=== PATIENT | female | born 2000 | race Two or more races ===

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

== ENCOUNTER 2019-10-01 01:56 | Outpatient (CLI) | payer OTHER | END 2019-10-01 11:36 | disposition home or self-care (01) | LOC: OBS/DEL 01:56 | DX: O60.03 Preterm labor without delivery, third trimester (principal) ==

== ENCOUNTER 2025-09-14 11:02 | Emergency (ER) | payer OTHER ==
[~2025-09-14] VITALS: Ht 152.4 cm; Wt 81.6 kg
[2025-09-14] MEDS ORDERED: 0.9 % SODIUM CHLORIDE 1 ML IV ONE (11:45)
[2025-09-14 11:54] LABS: BASO % 0.4 % (0.1-1.2); EOS # 0.23 (0.04-0.54); EOS % 2.3 % (0.7-7.0); LYMPH # 3.25 (1.18-3.74); LYMPH % 32.5 % (19.3-53.1); MEAN PLATELET VOLUME 11.90 fl (9.4-12.4); MONO # 0.61 (0.24-0.82); MONO % 6.1 % (4.7-12.5); NEUT # 5.83 (1.56-6.13); NEUT % 58.4 % (34.0-71.1); RED CELL DISTRIBUTION WIDTH 11.9 % (11.6-14.4)
[2025-09-14 12:26] LABS: INR 1.04
[2025-09-14 12:29] LABS: ALT/SGPT 30 U/L (12-78); AST/SGOT 16 U/L (15-37); BILIRUBIN TOTAL 0.49 mg/dL (0.3-1.2); BUN CREA RATIO 24 (7.0-25.0); CREATININE SERUM 0.78 mg/dL (0.55-1.02); GFR 89.27; GLOBULINA 3.3 G/DL (2.4-3.5); GLUCOSE FASTING 87 mg/dL (65-100); OSMOLALITY SERUM 281 MOSM/KG (275-295)
[2025-09-14 12:36] LABS: HCG QUANTITATIVE < 1 mUI/mL (1-3)
[2025-09-14 15:03] LABS: COVID-19 AG NEGATIVE (NEGATIVE)
[2025-09-14 15:54] LABS: URINE APPEARANCE Clear; URINE BILIRRUBIN Negative (NEGATIVE); URINE BLOOD Negative; URINE COLOR Yellow; URINE GLUCOSE Negative (NEGATIVE); URINE KETONE Negative (NEGATIVE); URINE LEUKOCYTE Negative; URINE NITRATE Negative; URINE PROTEIN Negative (NEGATIVE); URINE UROBILINOGEN 0.2 E.U./dl
[2025-09-14 15:56] LABS: URINE BACTERIA 1380.7 uL (0.0-1933); URINE EPITHELIAL CELLS 31.8 uL (0.0-38.8); URINE RBC 5.3 uL (0.0-20.8); URINE WBC 22.9 uL (0.0-23.2)
[2025-09-14 16:08] LABS: COCAINE NEGATIVE (NEGATIVE); METHADONE NEGATIVE (NEGATIVE); OPIATES NEGATIVE (NEGATIVE); THC ( Cannabinoids) POSITIVE (NEGATIVE)
[2025-09-14 16:14] LABS: URINE CAST 0.42 uL (0.0-1.40)
== END 2025-09-14 19:47 | disposition left against medical advice (07) ==
LOC: ER 11:03
PROVIDERS: Preventive Medicine Public Health & General Preventive Medicine
DX: R55 Syncope and collapse (principal); J45.909 Unspecified asthma, uncomplicated; Z20.822 Contact with and (suspected) exposure to COVID-19